=== PATIENT | male | born 1955 | race African-American/Black ===

== ENCOUNTER 2018-09-16 12:47 | Inpatient (IN) ==
[2018-09-16] MEDS ORDERED: Morphine Sulfate Inj 2 MG/ML Vial ONE (12:52)
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
[2018-09-16 13:11] LABS: Baso % (Auto) 0.7 % (0.0-2.0); Eos % (Auto) 0.9 % (0.0-4.0); Hematocrit 36.3 % (39.0-51.0); Lymph # (Auto) 1.5 th/mm3 (1.0-4.8); Lymph % (Auto) 29.9 % (9.0-44.0); Mean Corpuscular HGB Conc 33.1 % (32.0-36.0); Mean Corpuscular Hemoglobin 28.2 pg (27.0-34.0); Mean Corpuscular Volume 85.3 fL (80.0-100.0); Mean Platelet Volume 9.8 fL (7.0-11.0); Mono # (Auto) 0.3 th/mm3 (0.0-0.9); Mono % (Auto) 6.2 % (0.0-8.0); Neut # (Auto) 3.2 th/mm3 (1.8-7.7); Neut % (Auto) 62.3 % (16.0-70.0); Platelet Count 150 th/mm3 (150-450); Red Blood Count 4.25 mil/mm3 (4.50-5.90); Red Cell Distribution Width 14.7 % (11.6-17.2); White Blood Count 5.1 th/mm3 (4.0-11.0)
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
[2018-09-16 13:19] LABS: Activated Partial Thrombo Time 22.2 sec (24.3-30.1); INR 1.1 Ratio; Prothrombin Time 11.6 sec (9.8-11.6)
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
[2018-09-16] MEDS ORDERED: HYDROmorphone PF Inj 2 MG/ML Vial IV.PUSH PRN (13:38)
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
[2018-09-16] MEDS: Sod Chloride 0.9% Inj 1,000 ML IV.CONT SCH ×2 (13:50→21:42)
[2018-09-16] MEDS ORDERED: Dextrose 50% in Water 50 ML Vial IV.PUSH PRN (14:38)
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
[2018-09-16] MEDS: HYDROmorphone PF Inj 2 MG/ML Vial IV.PUSH PRN ×2 (15:41→18:28)
[2018-09-16] MEDS: Docusate Sodium 100 MG Capsule PO SCH ×2 (16:40→20:14)
[2018-09-16] MEDS: Pantoprazole Inj 40 MG Vial IV.PUSH SCH (16:40)
[2018-09-16] MEDS: Insulin NovoLOG Aspart Correctional Sugar Inj SQ SCH ×2 (16:54→20:15)
--- NOTE | 2018-09-16 19:28 | ECG ---
Date Performed: 09/16/2018 Time Performed: 14:03:58 PTAGE: 89 years EKG: SINUS BRADYCARDIA MODERATE INTRAVENTRICULAR CONDUCTION DELAY NONSPECIFIC T-WAVE ABNORMALITY BORDERLINE ECG NO PREVIOUS TRACING DOCTOR: Soo Knight Interpretating Date/Time 09/16/2018 19:26:28
[2018-09-17] MEDS: HYDROmorphone PF Inj 2 MG/ML Vial IV.PUSH PRN (00:25)
[2018-09-17] MEDS ORDERED: Chlorhexidine Gluconate 2% 1 Pack (2 Cloths) TOPICAL PRN (04:00)
[2018-09-17] MEDS ORDERED: Chlorhexidine Gluconate 2% 1 Pack (2 Cloths) TOPICAL SCH (04:00)
[2018-09-17 06:03] LABS: Baso % (Auto) 0.3 % (0.0-2.0); Eos % (Auto) 0.6 % (0.0-4.0); Hematocrit 31.8 % (39.0-51.0); Hemoglobin 10.7 gm/dL (13.0-17.0); Lymph % (Auto) 23.3 % (9.0-44.0); Mean Corpuscular HGB Conc 33.6 % (32.0-36.0); Mean Corpuscular Hemoglobin 28.9 pg (27.0-34.0); Mean Platelet Volume 10.3 fL (7.0-11.0); Mono # (Auto) 0.4 th/mm3 (0.0-0.9); Mono % (Auto) 8.2 % (0.0-8.0); Neut # (Auto) 2.9 th/mm3 (1.8-7.7); Neut % (Auto) 67.6 % (16.0-70.0); Platelet Count 90 th/mm3 (150-450); Red Cell Distribution Width 14.6 % (11.6-17.2); White Blood Count 4.3 th/mm3 (4.0-11.0)
[2018-09-17 06:32] LABS: Calcium 8.2 mg/dL (8.5-10.1); Carbon Dioxide 25.2 meq/L (21.0-32.0); Potassium 4.3 meq/L (3.5-5.1)
--- NOTE | 2018-09-17 07:15 | XR ---
EXAM DATE: 09/17/2018 6:00 AM EDT AGE/SEX: 89 years / Male INDICATIONS: Shortness of breath. CLINICAL DATA: This is the patient's subsequent encounter. Patient reports that signs and symptoms h ave been present for 2 days and indicates a pain score of 4/10. MEDICAL/SURGICAL HISTORY: Diabetes. None. COMPARISON: [facility] – [place], CHEST 1V SINGLE AP, 09/16/2018. . FINDINGS: A single AP view of the chest demonstrates the lungs to be symmetrically aerated without evidence of mass, infiltrate or effusion. The cardiomediastinal contours are unremarkable. Osseous structures a re intact. CONCLUSION: No acute cardiac pulmonary disease. Electronically signed by: Isaac Lind MD 09/17/2018 7:13 AM EDT
--- NOTE | 2018-09-17 08:47 | P.PNOP ---
Subjective Interval history: Patient notes shoulder and rib pain. No new radiating arm pain or numbness. Questions about his condition. He is from [place]. Physical Exam Vital signs: Vital Signs 09/16/18 12:57 09/16/18 14:00 09/16/18 14:53 Temperature 97.5 F L Pulse Rate 59 L Respiratory Rate 10 L Blood Pressure 127/60 Pulse Oximetry 100 100 100 09/16/18 15:06 09/16/18 16:00 09/16/18 16:11 Temperature 97.5 F L Pulse Rate 60 Respiratory Rate 10 L 10 L Blood Pressure 112/65 Pulse Oximetry 100 100 09/16/18 16:12 09/16/18 18:00 09/16/18 20:00 Temperature 97.5 F L Pulse Rate 60 58 L Respiratory Rate 10 L 12 Blood Pressure 115/57 L Pulse Oximetry 99 09/17/18 00:00 09/17/18 04:00 09/17/18 08:00 Temperature 97.7 F 97.5 F L 97.4 F L Pulse Rate 55 L 54 L 59 L Respiratory Rate 12 15 18 Blood Pressure 131/61 130/61 113/55 L Pulse Oximetry 100 100 97 Intake & Output 09/16/18 09/17/18 09/17/18 18:59 06:59 18:59 Intake Total 440 / 440 1720 / 1720 Output Total 750 / 750 Balance 440 / 440 970 / 970 Weight 93.8 kg 93.2 kg Intake: IV 1000 / 1000 NS Inj 1,000 ML @ 100 mls/hr IV 1000 / 1000 .CONT .Q10H [facility] Rx#:[id number] Oral 440 / 440 720 / 720 Output: Urine 750 / 750 Other: # Voids 0 # Incontinent Voids 0 Date of Last Bowel Movement 09/15/18 # Bowel Movements 0 Weight On Admission 93.8 kg Narrative: Laying in bed NAD LUE Sling in place, minimal deformity clavicle, mild swelling shoulder No erythema +motor distal, +sens forearm/hand Patient seen and examined by Dr. Eder Eisenberg - Constitutional no acute distress Results - Labs CBC & Chem 7: 09/17/18 05:41 09/17/18 05:41 Laboratory Results - last 24 hr 09/16/18 09/16/18 09/16/18 12:50 12:50 12:50 WBC 5.1 RBC 4.25 L Hgb 12.0 L POC Hgb (Calc) 11.6 L Hct 36.3 L POC Hct 34.0 L MCV 85.3 MCH 28.2 MCHC 33.1 RDW 14.7 Plt Count 150 MPV 9.8 Prelim Diff (Auto) Neut % (Auto) 62.3 Lymph % (Auto) 29.9 [place] % (Auto) 6.2 Eos % (Auto) 0.9 Baso % (Auto) 0.7 Neut # (Auto) 3.2 Lymph # (Auto) 1.5 [place] # (Auto) 0.3 Eos # (Auto) 0.0 Baso # (Auto) 0.0 WBC Differential . Diff Scan Differential Comment Auto diff final Platelet Estimate Platelet Morphology PT 11.6 INR 1.1 APTT 22.2 L POC Sodium 142 Sodium POC Potassium 4.0 Potassium POC Chloride 103 Chloride Carbon Dioxide Anion Gap POC BUN 22 H BUN Creatinine POC Creatinine 1.7 H Estimated GFR POC Glucose 152 H Random Glucose Calcium Nasal Screen MRSA (PCR) Serum Alcohol Blood Type Antibody Screen 09/16/18 09/16/18 09/16/18 12:50 12:50 13:37 WBC RBC Hgb POC Hgb (Calc) Hct POC Hct MCV MCH MCHC RDW Plt Count MPV Prelim Diff (Auto) Neut % (Auto) Lymph % (Auto) [place] % (Auto) Eos % (Auto) Baso % (Auto) Neut # (Auto) Lymph # (Auto) [place] # (Auto) Eos # (Auto) Baso # (Auto) WBC Differential Diff Scan Differential Comment Platelet Estimate Platelet Morphology PT INR APTT POC Sodium Sodium POC Potassium Potassium POC Chloride Chloride Carbon Dioxide Anion Gap POC BUN BUN Creatinine POC Creatinine Estimated GFR POC Glucose Random Glucose Calcium Nasal Screen MRSA (PCR) Not detected Serum Alcohol 5 Blood Type A Positive Antibody Screen Negative 09/16/18 09/16/18 09/17/18 16:45 20:02 05:41 WBC 4.3 RBC 3.70 L Hgb 10.7 L POC Hgb (Calc) Hct 31.8 L POC Hct MCV 86.0 MCH 28.9 MCHC 33.6 RDW 14.6 Plt Count 90 L D MPV 10.3 Prelim Diff (Auto) Slide review pending Neut % (Auto) 67.6 Lymph % (Auto) 23.3 [place] % (Auto) 8.2 H Eos % (Auto) 0.6 Baso % (Auto) 0.3 Neut # (Auto) 2.9 Lymph # (Auto) 1.0 [place] # (Auto) 0.4 Eos # (Auto) 0.0 Baso # (Auto) 0.0 WBC Differential . Diff Scan Auto diff confirmed Differential Comment . Platelet Estimate Low L Platelet Morphology Enlarged H PT INR APTT POC Sodium Sodium POC Potassium Potassium POC Chloride Chloride Carbon Dioxide Anion Gap POC BUN BUN Creatinine POC Creatinine Estimated GFR POC Glucose 117 H 160 H Random Glucose Calcium Nasal Screen MRSA (PCR) Serum Alcohol Blood Type Antibody Screen 09/17/18 05:41 WBC RBC Hgb POC Hgb (Calc) Hct POC Hct MCV MCH MCHC RDW Plt Count MPV Prelim Diff (Auto) Neut % (Auto) Lymph % (Auto) [place] % (Auto) Eos % (Auto) Baso % (Auto) Neut # (Auto) Lymph # (Auto) [place] # (Auto) Eos # (Auto) Baso # (Auto) WBC Differential Diff Scan Differential Comment Platelet Estimate Platelet Morphology PT INR APTT POC Sodium Sodium 138 POC Potassium Potassium 4.3 POC Chloride Chloride 106 Carbon Dioxide 25.2 Anion Gap 7 POC BUN BUN 20 H Creatinine 1.02 POC Creatinine Estimated GFR 63 L POC Glucose Random Glucose 118 H Calcium 8.2 L Nasal Screen MRSA (PCR) Serum Alcohol Blood Type Antibody Screen - Imaging Impressions Clavicle X-Ray 09/16/18 00:00 CONCLUSION: 1. Acute comminuted displaced fracture involving the left mid clavicle. 2. Degenerative changes are noted involving the left acromioclavicular joint. Chest X-Ray 09/16/18 12:50 CONCLUSION: 1. Acute comminuted displaced fracture involving left mid clavicle. 2. Acute fracture involving the lateral aspect of the left third rib. 3. No acute cardiopulmonary disease. Pelvis X-Ray 09/16/18 12:50 CONCLUSION: Negative trauma study with overlying artifact. Abdomen/Pelvis CT 09/16/18 12:52 CONCLUSION: 1. No acute visceral injury. 2. Moderate degenerative disc change at the L5-S1 level with grade 1 anterior spondylolisthesis and bilateral pars defects which are chronic in appearance. Cervical Spine CT 09/16/18 12:52 CONCLUSION: 1. Negative trauma CT. Chest CT 09/16/18 12:52 CONCLUSION: 1. Mildly comminuted fracture deformity of the left distal clavicle. 2. The lungs are clear and there is no pneumothorax. 3. Coronary artery calcifications. Elbow X-Ray 09/16/18 12:52 CONCLUSION: negative limited [address] 09/16/18 12:52 CONCLUSION: 1. No acute intracranial abnormality. 2. Small subgaleal hematoma along the left posterior parietal skull. Humerus X-Ray 09/16/18 12:52 CONCLUSION: 1. Left humerus is intact in appearance on this limited exam. 2. Mildly comminuted left clavicular fracture. Chest X-Ray 09/17/18 06:00 CONCLUSION: No acute cardiac pulmonary disease. Assessment and Plan - Assessment and Plan s/p left mildly displaced, comminuted clavicle fracture. Possible left rib fracture Ortho stable. PO pain meds with Andrews. Pain control per trauma. NWB left upper extremity Sling for comfort We will order left rib series to rule out fracture before discharge. Ok to d/c per ortho when stable. F/U in 7-[address] Alvarenga. Repeat eval for left ribs and left clavicle. Further decision making about clinical management at that time.
[2018-09-17] MEDS ORDERED: Lidocaine 5% Patch T-DERMAL SCH (09:00)
[2018-09-17] MEDS ORDERED: Sodium Chloride 0.9% 2 ML Flush BID IV.FLUSH SCH (09:00)
[2018-09-17] MEDS: Insulin NovoLOG Aspart Correctional Sugar Inj SQ SCH ×2 (10:09→12:17)
[2018-09-17] MEDS: Docusate Sodium 100 MG Capsule PO SCH (10:09)
[2018-09-17] MEDS: Sod Chloride 0.9% Inj 1,000 ML IV.CONT SCH (10:11)
[2018-09-17 12:02] VITALS: BP 114/56; PULSE 57; RESP 17; TEMP 98.1; O2SAT 98
--- NOTE | 2018-09-17 13:04 | XR ---
EXAM DATE: 09/17/2018 12:00 AM EDT AGE/SEX: 62 years / Male INDICATIONS: Left rib pain CLINICAL DATA: This is the patient's initial encounter. Patient reports that signs and symptoms have been present for 2 days and indicates a pain score of 6/10. MEDICAL/SURGICAL HISTORY: . Diabetes. None. COMPARISON: [facility] – [place], CHEST 1V SINGLE AP, 09/17/2018. . FINDINGS: There are mildly displaced fractures of the second, third, fourth and fifth lateral left ribs. Expir atory view of the chest is negative for pneumothorax. The mediastinal structures are midline. CONCLUSION: 1. Mildly displaced fractures of the 2nd-5th left lateral ribs. 2. No significant pneumothorax. Electronically signed by: Carlton Loredo MD 09/17/2018 1:03 PM EDT
[2018-09-17] MEDS: Pantoprazole Inj 40 MG Vial IV.PUSH SCH (15:25)
== END 2018-09-17 16:56 | disposition home or self-care (01) ==
LOC: NEPI 12:47 → EDBD 13:26 → NEDA 13:26 → N03 13:30 → N06 09-17 02:40
PROVIDERS: ADMIT Surgery